=== PATIENT | female | born 1985 | race Caucasian/White ===

== ENCOUNTER 2021-08-15 09:25 | Outpatient (CLI) | payer OTHER, SELFPAY ==
--- NOTE | 2021-08-15 15:01 | ECG_ITS ---
Measurements Intervals [place] Rate: 84 P: 26 NC: 136 QRS: 17 QRSD: 72 T: 57 QT: 345 QTc: 408 Interpretive Statements SINUS RHYTHM NORMAL ECG Electronically Signed On 08-15-2021 15:23:52 [employer] by Vincent Montes De Oca D.O.
== END 2021-08-15 09:26 ==
LOC: ANHCARD 09-08 09:26
PROVIDERS: PCP Family Medicine; Visit Provider Physician Assistant
DX: R00.2 Palpitations (principal)
CPT/HCPCS: 93005

== ENCOUNTER 2023-03-26 17:26 | Emergency (ER) | payer OTHER, SELFPAY ==
[2023-03-26 17:30] VITALS: BP 130/81; PULSE 84; RESP 20; TEMP 36.8; O2SAT 100
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
[2023-03-26 17:57] VITALS: BP 128/82; PULSE 80; RESP 20; TEMP 36.7; O2SAT 100
== END 2023-03-26 18:05 | disposition home or self-care (01) ==
LOC: CHSED 18:01
PROVIDERS: Emergency Provider Emergency Medicine; PCP Nurse Practitioner Family
DX: S83.91XA Sprain of unspecified site of right knee, initial encounter (principal); V49.40XA Driver injured in collision with unspecified motor vehicles in traffic accident, initial encounter; Y92.410 Unspecified street and highway as the place of occurrence of the external cause
CPT/HCPCS: 99281